=== PATIENT | male | born 1980 | race Caucasian/White ===

== ENCOUNTER 2022-06-18 11:59 | Outpatient (CLI) | payer BC | END 2022-06-18 12:00 | disposition home or self-care (01) | LOC: CSHCT 11:59 | PROVIDERS: ATTEND Student in an Organized Health Care Education/Training Program | DX: R10.33 Periumbilical pain (principal); J90 Pleural effusion, not elsewhere classified; R16.1 Splenomegaly, not elsewhere classified; K42.9 Umbilical hernia without obstruction or gangrene | CPT/HCPCS: 74177 ==